=== PATIENT | female | born 1985 | race Caucasian/White ===

== ENCOUNTER → 2023-04-13 08:05 | Outpatient (CLI) | payer OTHER, SELFPAY ==
--- NOTE | 2023-04-13 08:40 | PC.NURSE ---
Pre and Post Spirometry completed without incident. Albuterol 0.083% given via [facility]N, per written protocol, Pt tolerated tx well.
--- NOTE | 2023-04-13 08:47 | XR_ITS ---
FINAL REPORT TECHNIQUE: Chest PA & Lateral CLINICAL HISTORY: SOA COMPARISON: None FINDINGS: 2 views of the chest were performed. The heart size is normal. The mediastinum is within normal limits. There is no acute cardiopulmonary process. There are no pleural effusions. There is no pneumothorax. The bony thorax appears intact. IMPRESSION: No acute cardiopulmonary process. Reviewed, Interpreted and Dictated by Robb Ambrose MD Transcribed by Quiana Esquivel Authenticated and [facility]
== END ==
PROVIDERS: Visit Provider Chiropractor
DX: R06.02 Shortness of breath (principal)
CPT/HCPCS: 71046; 94060